=== PATIENT | male | born 1955 | race Caucasian/White ===

== ENCOUNTER 2025-04-27 08:04 | Outpatient (REF) | payer MEDICARE, OTHER, SELFPAY ==
[2025-04-27 13:07] LABS: Appearance Urine Clear; Glucose Urine UA Negative (Negative); PH 5.0 (5.0-9.0); Specific Gravity - Urine 1.025 (1.005-1.025)
[2025-04-27 13:33] LABS: MANUAL DIFF FLAG NO
[2025-04-27 13:44] LABS: Hematocrit 47.2 % (42.0-52.0); Hemoglobin 15.5 g/dl (14.0-18.0); Imm Gran Abs Auto 0.02 X10*3/uL (0.00-0.03); Imm Gran Pct Auto 0.3 % (0.0-0.4); Lymphocytes Absolute Auto 1.5 X10*3/uL (1.2-4.9); Mean Corpuscular HGB Conc 32.8 g/dl (31.0-36.0); Mean Corpuscular Hemoglobin 32.4 pg (27.0-33.0); Mean Corpuscular Volume 98.5 fL (80.0-98.0); NRBC Abs Auto 0.000 X10*3/uL (0.0-0.012); NRBC Pct Auto 0.0 /100WBC (0.0-0.2); Platelet Count 161 X10*3/uL (160-400); Red Blood Count 4.79 X10*6/uL (4.60-5.80); White Blood Count 6.6 X10*3/uL (4.8-10.8)
[2025-04-27 14:46] LABS: Folate 9.3 ng/mL (> or = 4.0); Vitamin B12 304 pg/mL (200-900)
[2025-04-27 19:25] LABS: Alanine Aminotransferase 34 U/L (0-40); Albumin Level 4.4 g/dL (3.5-5.0); Alkaline Phosphatase 54 U/L (39-117); Anion Gap 11 (12-20); Aspartate Amino Transferase 33 U/L (5-37); Blood Urea Nitrogen 20 mg/dL (9-16); Calcium 9.4 mg/dL (8.4-10.2); Carbon Dioxide 29 mmol/L (22-29); Chloride 109 mmol/L (96-108); Cholesterol 133 mg/dL (<200); Estimated Glomerular Filt Rate > 60; HDL Cholesterol 58 mg/dL (>40); Magnesium 1.8 mg/dL (1.6-2.6); Potassium 4.9 mmol/L (3.3-5.1); Sodium 144 mmol/L (135-145); Total Protein 6.9 g/dL (6.5-8.0); Triglycerides 69 mg/dL (<150)
[2025-04-28 05:09] LABS: Syphilis Screen Nonreactive (Nonreactive)
[2025-04-28 05:41] LABS: HBS Num1 2.42 mIU/mL (0-7.99); HBsAGNum1 0.36 S/CO (0.00-0.99); HIV Num 1 0.05 S/CO (0.00-0.99); Hepatitis B Surface Antigen Negative (Negative); ~HepC Num1 0.08 S/CO (0.00-0.79); ~Hepatitis B Surface Antibody NONREACTIVE (Nonreactive); ~Hepatitis C Antibody Nonreactive (Nonreactive)
[2025-05-02 15:12] LABS: VITAMIN D (1,25 OH) D3 30 pg/mL; Vit D (1,25-Dihydroxy) Total 30 pg/mL (18-72); Vitamin D (1,25 OH) D2 <8 pg/mL
== END 2025-04-27 08:05 | disposition home or self-care (01) ==
LOC: HO.HKASLDS 08:04
PROVIDERS: PCP Student in an Organized Health Care Education/Training Program; Visit Provider Student in an Organized Health Care Education/Training Program
DX: I25.10 Atherosclerotic heart disease of native coronary artery without angina pectoris (principal); G25.0 Essential tremor; J98.4 Other disorders of lung; Z76.89 Persons encountering health services in other specified circumstances; Z79.891 Long term (current) use of opiate analgesic; Z28.89 Immunization not carried out for other reason; Z98.890 Other specified postprocedural states
CPT/HCPCS: 36415; 80053; 80061; 81003; 82607; 82652; 82746; 83036; 83735; 84443; 85025; 86706; 86780; 86803; 87340; 87389; 90471; 96127; 99202

== ENCOUNTER 2025-04-27 08:04 | Outpatient (AMB) | payer MEDICARE, OTHER, SELFPAY ==
--- NOTE | 2025-04-27 08:18 | MHC.PC.OV ---
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 Accompanied by: Self / Same As Patient Allergies No Known Allergies (No Known Allergies*) Allergy (Verified 04/27/25 08:18) Medication List - Last Reconciled 04/27/25 by Herrera Mcpherson MD aspirin 81 mg PO DAILY fluticasone propionate 50 mcg/actuation 1 spray intranasal DAILY metoprolol succinate ER 100 mg PO DAILY naproxen 500 mg PO BID PRN rosuvastatin 20 mg PO BEDTIME Tobacco use date assessed: 04/27/25 Fall risk assessment: No Falls in past year Last assessed Fall Risk: 04/27/25 Dental Screening Dental Screen Date: 04/27/25 Did you have a dental visit in the last 12 months?: No Was dental information given to patient?: No HPI HPI Comments History of Present Illness Details History of Present Illness The patient is a 69 year old individual presenting to [facility]. Coronary Artery Disease: The patient has a history of open-heart surgery in 2019 for two clogged arteries. A stent-based procedure was not possible, necessitating open surgery. The patient is followed by a strawberry grower, Dr. Leiva, once a year and is currently taking aspirin, metoprolol, and rosuvastatin. The patient's next cardiology follow-up is scheduled for August. History of Lumbar Surgery: The patient has undergone two back operations for nerve damage. The first surgery was 12 to 14 years ago, and a subsequent surgery on a disc was performed 3 to 4 years ago. The patient reports these have worked out well, with occasional creakiness. Chronic Lung Changes: The patient has a chronically elevated left lung, which has been present since or childhood. 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 The patient's cardiac surgeon also suspected it was due to polio. This baseline condition causes gurgly sounds in the left lung upon auscultation, but the patient denies any breathing problems. The patient's prior primary care physician would order a chest x-ray every three to four years for monitoring. Health Maintenance: The patient's last colonoscopy was two years ago and the next one is due in three years. The patient had blood work done less than a month ago with [facility]. Essential Tremor: The patient has had fine tremors since . Surgical History: - Open heart surgery in 2019. - Two back surgeries, with the most recent being 3-4 years ago. - Left meniscectomy, date unknown. Medications: - Aspirin, indication: heart related - Metoprolol, indication: heart related - Rosuvastatin, indication: heart related Social History: - Tobacco Use: The patient is a former smoker, having quit approximately 30 years ago. - The patient smoked for about 15 years, at a rate of 10 cigarettes per day. - Substance Use: The patient denies illicit drug use. 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 Diagnostic Results: - Recent blood work performed less than a month ago via [facility] showed good cholesterol levels and included an A1c. - Last colonoscopy was performed two years ago, with a recommendation for a repeat screening in five years from that date. Past Medical History - Coronary artery disease, status post open-heart surgery in 2019. - Chronic back issues with nerve damage, status post two back operations. - History of left meniscectomy. - Chronically elevated left lung, thought to be related to childhood polio. - History of tobacco use, quit 30 years ago. - Essential tremor since . - No hospitalizations other than for the aforementioned surgeries. Health Maintenance - Order baseline laboratory studies including an A1c, lipids panel, vitamin B12, folate, vitamin D, CMP, and hemoglobin. - Schedule a follow-up appointment in two weeks to review lab results. - Continue annual follow-up with cardiology. - Continue colonoscopy screenings as scheduled; next one due in three years. [facility] Medical History (Updated 04/27/25 @ 09:09 by Herrera Mcpherson MD) History of nicotine use Lung abnormality Essential tremor CAD (coronary artery disease) Surgical History (Updated 04/27/25 @ 09:09 by Herrera Mcpherson MD) History of lumbar surgery Family History (Updated 04/27/25 @ 08:29 by Kiera Young CMA) Mother No problems noted. Father Heart disease Social History Housing: House Patient Tobacco Use Status: Former Tobacco user e-Cigarette/Vaping Use: Never Used service: No Current occupational status: employed Cognitive needs: No Hearing needs: No Vision needs: Yes (rx glasses) Questionnaire PHQ-9 Over the last 2 weeks, how often have you been bothered by any of the following problems? 1. Little interest or pleasure in doing things: not at all 2. Feeling down, depressed, or hopeless: not at all 3. Trouble falling or staying asleep, or sleeping too much: not at all 4. Feeling tired or having little energy: not at all 5. Poor appetite or overeating: not at all 6. Feeling bad about yourself - or that you are a failure or have let yourself or your family down: not at all 7. Trouble concentrating on things, such as reading the newspaper or watching television: not at all 8. Moving or speaking so slowly that other people could have noticed. Or the opposite - being so fidgety or restless that you have been moving around a lot more than usual: not at all 9. Thoughts that you would be better off or of hurting yourself in some way: not at all Total score: 0 Source: Developed by Drs. Joe Mckeon, Lisa Parker, Rex Wilder and colleagues, with an educational og from [employer]. Thrive Questionnaire Date Thrive assessed: 04/27/25 I am a: Patient What is your living situation today?: I have a steady place to live Within the past 12 months, did the food you bought not last and you didn't have the money to get more?: Never true Within the past 12 months, did you worry whether your food would run out before you got money to buy more?: Never true Do you have trouble paying for medicines?: No Do you have trouble getting transportation to medical appointments?: No Do you have trouble paying your heating and electricity bill?: No Do you have trouble taking care of your child, family member or friend?: No Are you currently unemployed and looking for a job?: No Are you interested in more education?: No Please select the resources that you would like help with: None Currently or been in a relationship where the following occur: No concerns reported THRIVE Score: 0 AUDIT C Alcohol Use Questionnaire (AUDIT-C) 1. How often do you have a drink containing alcohol?: 2-3 times a week 2. How many drinks containing alcohol do you have on a typical day when you are drinking?: 1 or 2 3. How often do you have six or more drinks on one occasion?: Never Total Score: 3 TERESA-7 AMB Questionnaire TERESA-7 Date TERESA - 7 assessed: 04/27/25 Feeling nervous, anxious, or on edge: 0 = Not at all Not being able to stop or control worryin = Not at all Worrying too much about different things: 0 = Not at all Trouble relaxin = Not at all Being so restless that it is hard to sit still: 0 = Not at all Becoming easily annoyed or irritable: 0 = Not at all Feeling afraid as if something awful might happen: 0 = Not at all Total TERESA-7 score (0-4 normal; 5-9 mild; 10-14 moderate; 15-21 severe): 0 Source: Developed by Drs. Joe Mckeon, Lisa Parker, Rex Wilder and colleagues, with an educational og from [employer]. Review of Systems Narrative Review of Systems - General: Reports feeling pretty well and cannot complain. - Respiratory: Denies breathing problems, but notes the left lung has sounded gurgly forever and ever. - Neurological: Reports longstanding fine tremors since . - Genitourinary: Reports occasional nocturia, waking once a night. - Gastrointestinal: Denies constipation. - Musculoskeletal: Reports feeling creaky at times but has no specific complaints. - Endocrine: Denies swelling in the lower legs. 10-point ROS reviewed and negative except as noted in HPI Physical exam (Primary Care) Vital Signs: Last Vital Signs Temp 97.9 F 04/27/25 08:24 Pulse 60 04/27/25 08:24 Pulse Ox 97 04/27/25 08:24 Oxygen Delivery Method Room Air 04/27/25 08:24 BMI result Body Mass Index 27.7 Tobacco/Smoking Status: Tobacco use Status Tobacco use date assessed 04/27/25 04/27/25 08:20 Patient Tobacco Use Status Former Tobacco user 04/27/25 08:31 e-Cigarette/Vaping Use Never Used 04/27/25 08:20 PHQ-9: PHQ-9 Score PHQ-9: Total score 0 04/27/25 08:26 Thrive Assessment: Date of Thrive Assessment Date Thrive assessed 04/27/25 04/27/25 08:20 Currently or been in a relationship where the following occur: No concerns reported Narrative Physical Exam General: Well-appearing, in no acute distress. Vital signs: Within normal limits. HEENT: Normocephalic, atraumatic. PERRLA, EOMI. Conjunctiva clear, sclera anicteric. Oropharynx clear, mucous membranes moist. TMs intact bilaterally. Neck: Supple, no lymphadenopathy, no thyromegaly, no JVD or carotid bruits. Cardiovascular: RRR, normal S1/S2, no murmurs, rubs, or gallops. Peripheral pulses 2+ and symmetric. No edema. Respiratory: Lungs with crackles on the left side, no wheezes, rales, or rhonchi. Normal effort. Abdomen: Soft, non-tender, non-distended. Normoactive bowel sounds. No hepatosplenomegaly, no masses. MSK: Full range of motion, no joint swelling or deformity. Normal gait. Fine tremors noted, present since infancy. Skin: Warm, dry, intact. No rashes, lesions, or pallor. Neuro: Alert and oriented x3. Cranial nerves II-XII intact. Strength 5/5 throughout. Sensation intact. Reflexes 2+ symmetric. Normal coordination and gait. Psych: Appropriate mood and affect. Normal judgment and insight. Office Procedures Flu Questionnaire Does the patient have a severe egg allergy?: No Does the patient have severe life threatening allergies?: No Does the patient have a fever or illness today?: No Has the patient ever had Guillain-[place] Syndrome?: No Has the patient ever had any past reaction to a flu shot?: No Immunizations Fluarix [id number] (PF) 45 mcg (15 mcg x 3)/0.5 mL IM syringe Performing Provider: Herrera Mcpherson MD Performing Location: [facility] [place] [facility] Documented (not given) by: Kiera Young CMA on 04/27/25 08:40 Reason Not Given: Received Previously Coding Level of Care Code New Pt Level 4 (67922) Diagnoses CAD (coronary artery disease) I25.10 History of lumbar surgery Z98.890 Essential tremor G25.0 Lung abnormality J98.4 Encounter to establish care Z76.89 History of nicotine use Z87.891 Assessment & Plan Assessment & Plan (1) CAD (coronary artery disease): Code(s): I25.10 - Atherosclerotic heart disease of [place] coronary artery without angina pectoris Category: Medical (2) History of lumbar surgery: Code(s): Z98.890 - Other specified postprocedural states Category: Surgical (3) Essential tremor: Code(s): G25.0 - Essential tremor Category: Medical (4) Lung abnormality: Code(s): J98.4 - Other disorders of lung Category: Medical (5) Encounter to establish care: Code(s): Z76.89 - Persons encountering health services in other specified circumstances (6) History of nicotine use: Code(s): Z87.891 - Personal history of nicotine dependence Category: Medical Plan Consent The patient provided verbal consent for the agreed-upon plan, which includes obtaining baseline laboratory studies and scheduling a follow-up visit in two weeks to review the results. Patient was informed and verbally consented to the use of an ambient scribe for clinic note documentation during this visit. Plan 1. Chronic Lung Changes - The patient's chronic lung findings, including crackles on the left side, are noted as a baseline. - Will consider periodic chest x-rays for monitoring as was done by the patient's previous provider. Discussion Notes I discussed with the patient the purpose of this visit, which is to establish primary care. I explained that although the patient had recent blood work, I would be ordering a new set of labs to establish a baseline for my records, including tests for A1c, lipids, B12, folate, vitamin D, and a CMP. We agreed that the patient will have the labs drawn and return in two weeks to go over the results. I noted the patient's concern about insurance coverage for a full physical exam so soon after a recent one and explained this visit is for initiating care. Patient Instructions - Please go to the lab next door to get your blood drawn for the tests we discussed. - Make an appointment to come back and see me in two weeks to review your lab results. - Continue to take your current medications as prescribed. - Continue your yearly appointments with your heart doctor. Medical Decision Making This 69-year-old individual presents for establishment of primary care. The patient's history is notable for coronary artery disease status post CABG, prior lumbar surgeries, and chronic left lung changes that are reportedly congenital and stable. The physical exam confirmed the patient's baseline of left-sided lung crackles and a longstanding fine tremor. Given this is an initial visit, the primary goal is to gather baseline data. Therefore, I have ordered a comprehensive panel of labs, including a CMP, CBC, HbA1c, lipids, and vitamin levels, despite recent testing, to ensure a complete record. A follow-up in two weeks will be used to review these results and establish a long-term health maintenance plan. Coordination of care will continue with the patient's strawberry grower. Total Time Statement 30 min Total time spent caring for the patient today includes pre-visit chart review, documentation, review of laboratory and diagnostic imaging results, medication reconciliation, medically necessary evaluation, counseling on diagnoses, care coordination, ordering appropriate tests and medications, review of tests performed by other providers, reporting test results to the patient, and communication with other healthcare providers. Orders: Orders Complete Blood Count Auto Diff Today Z13.9 - Encounter for screening, unspecified Hepatitis B Surface Antigen Today Z13.9 - Encounter for screening, unspecified Syphilis Screen Today Z13.9 - Encounter for screening, unspecified Comprehensive Met. Panel Today Z13.9 - Encounter for screening, unspecified UA CC w/rflx Micro + Cult Today Z13.9 - Encounter for screening, unspecified Lipid Panel Today Z13.9 - Encounter for screening, unspecified Vitamin B12 and Folate Today Z13.9 - Encounter for screening, unspecified Hepatitis B Surface Antibody Today Z13.9 - Encounter for screening, unspecified Influenza [id number] Immunization Today Z23 - Encounter for immunization Hepatitis C Antibody Today Z13.9 - Encounter for screening, unspecified TSH reflex Free T4 Today Z13.9 - Encounter for screening, unspecified HIV Ab/Ag Today Z13.9 - Encounter for screening, unspecified Hemoglobin A1c Today Z13.9 - Encounter for screening, unspecified Magnesium Today Z13.9 - Encounter for screening, unspecified Vitamin D 1,25 dihydroxy Today Z13.9 - Encounter for screening, unspecified
--- OUTSIDE RECORDS SUMMARY | 2025-04-27 08:20 | XMS_ITS | Clinical Summary ---
Author Organization [facility] Address [address] [place] [address] Phone Care Team Providers Care Patient Portal Representative Name Role Phone Da Bennett MD Primary Care Provider [phone] Allergies No known active allergies Medications acetaminophen (TYLENOL) 325 mg tablet Take 2 Tablets by mouth every 6 hours as needed. Active NAPROXEN ORAL Take by mouth as needed. Active metoprolol succinate (TOPROL-XL) 100 mg 24 hr tablet Take 100 mg by mouth daily. Active rosuvastatin (CRESTOR) 20 mg tablet Take 20 mg by mouth daily. Active aspirin 81 mg EC tablet Take 81 mg by mouth daily. Active fluticasone propionate (FLONASE) 50 mcg/actuation nasal spray 2 Sprays by Each Nare route daily. Active Active Problems Problem Noted Date Diagnosed Date Primary hypertension 08/24/2024 Assessment & Plan (08/24/2024 9:53 AM EDT): Blood pressure is reasonably controlled in the office today at 130/78. Continue metoprolol as prescribed. Hyperlipidemia 08/24/2024 Assessment & Plan (08/24/2024 9:53 AM EDT): Last lipid panel reviewed and under excellent control with an LDL of 62 which is at goal of <70. Continue rosuvastatin as prescribed. Coronary artery disease invo lving autologous artery coronary bypass graft without angina pectoris 06/28/2020 Overview (05/28/2024): Dr. Wale Dean. He underwent two-vessel coronary artery bypass grafting on 11/26/2018 the KAPLAN to LAD and SVG to RCA. Last Assessment & Plan: He has not had symptoms of coronary insufficiency. Most recent LDL is at goal. He is appropriately treated with medical therapy for coronary artery disease with low- dose aspirin, statin and beta-katharine therapy. Recent echocardiogram did not disclose evidence of structural heart disease and surveillance stress test suggested prior apical infarct which is not unexpected given his initial presentation without evidence ischemia. I reassured him on the basis of the studies. Will plan for routine clinical follow-up in 1 year or sooner if needed. Assessment & Plan (08/24/2024 9:52 AM EDT): Patient has a history of coronary artery disease status post coronary artery bypass graft with KAPLAN to the LAD and RGSV to the RCA. He denies signs and symptoms of coronary insufficiency. Continue on aspirin, metoprolol and rosuvastatin as prescribed. For any chest pain/discomfort, especially if associated with exertion, that lasts longer than 10-15 minutes and does not resolve with rest, patient has been encouraged to seek immediate medical attention by calling 911. Family History Medical History Relation Name Comments Coronary artery disease Father Relation Name Status Comments Father Social History Tobacco Use Types Packs/Day Years Used Date Smoking Tobacco: Former Smokeless Tobacco: Former Alcohol Use Standard Drinks/Week Comments Yes 0 (1 standard drink = 0.6 oz pur e alcohol) socially Sex and Gender Information Value Date Recorded Sex Assigned at Not on file Legal Sex Male 3:06 AM EST Gender Identity Not on file Sexual Orientation Not on file Obstetrics History Last Filed Vital Signs Vital Sign Reading Time Taken Comments Blood Pressure 130/78 08/24/2024 9:01 AM EDT Pulse 52 08/24/2024 9:01 AM EDT Temperature - - Respiratory Rate - - Oxygen Saturation 97% 08/24/2024 9:01 AM EDT Inhaled Oxygen Concentration - - Weight 88 kg (194 lb) 08/24/2024 9:01 AM EDT Height 175.3 cm (5' 9 ) 08/24/2024 9:01 AM EDT Body Mass Index 28.65 08/24/2024 9:01 AM EDT Plan of Treatment Health Maintenance Due Date Last Done Comments Colorectal Cancer Screening: Colonoscopy 1954 DTaP,Tdap,and Td Vaccines (1 - Tdap) 1973 Zoster Vaccines (2 of 2) 09/04/2021 07/10/2021 Pneumococcal Vaccine: 50+ Years (2 of 2 - PCV20 or PCV21) 03/10/2022 03/10/2021 Cholesterol Screening (Lipid Panel) 05/06/2022 07/27/2004 Falls Risk Assessment 05/06/2022 Hepatitis C Screening 05/06/2022 Social Influencers of Health Screening 05/06/2022 Hypertension/CHF/CAD Annual BMP Blood Test 08/27/2022 07/27/2004 Medicare Annual Wellness Visit 07/31/2023 07/31/2022 Depression Screening 06/03/2024 COVID-19 Vaccine ( season) 2025 02/23/2024, 03/20/2023, 02/22/2022, Additional history exists Influenza Vaccine (#1) 2025 , 03/20/2023, 02/14/2022, Additional history exists Abdominal Aortic Aneurysm (AAA) Screen Completed 04/13/2002 RSV Immunization Adult Patients Completed 03/23/2024 HIB Vaccines Aged Out No longer eligi ble based on patient's age to complete this topic HPV Vaccines Aged Out No longer eligi ble based on patient's age to complete this topic Hepatitis A Vaccines Aged Out No long er eligible based on patient's age to complete this topic Hepatitis B Vaccines Aged Out No long er eligible based on patient's age to complete this topic IPV Vaccines Aged Out No longer eligi ble based on patient's age to complete this topic MMR Vaccines Aged Out No longer eligi ble based on patient's age to complete this topic Meningococcal ACWY Vaccine Aged Out N o longer eligible based on patient's age to complete this topic Meningococcal B Vaccine Aged Out No l onger eligible based on patient's age to complete this topic RSV Immunization Patients Under 20 months Aged Out No longer eligible based on patient's age to complete this topic Varicella Vaccines Aged Out No longer eligible based on patient's age to complete this topic Procedures Procedure Name Priority Date/Time Associated Diagnosis Comments ANNUAL BMP BLOOD TEST Routine 07/27/2004 LIPID PANEL Routine 07/27/2004 ABDOMINAL AORTIC ANEURYSM SCRREN Routine 04/13/2002 from Last 3 Months or Most Recently Relevant to Health Maintenance Results * Annual BMP Blood Test (07/27/2004) Annual BMP Blood Test Abstracted [facility] Provider HEALTH MAINTENANCE Final Result * (ABNORMAL) Lipid panel (07/27/2004) Pathologist [facility] LDL/HDL Ratio 3 <=5 Triglycerides 66 <=150 mg/dL Cholesterol 183 <=200 mg/dL HDL 57 >=40 mg/dL LDL Cholesterol 113(A) <=100 mg/dL Blood Venous blood specimen / Unknown [facility] Provider LAB BLOOD ORDERABLES Kathleen l Result * Abdominal Aortic Aneurysm Screen (04/13/2002) Pathologist formerly [facility] Abdominal Aortic Aneurysm (AAA) Screening Abstracted Anatomical Region Laterality Modality Other [facility] Provider HEALTH MAINTENANCE Final Result from Last 3 Months or Most Recently Relevant to Health Maintenance Insurance MEDICARE [facility] Care Teams Patient Portal Representative Relationship Specialty Start Date End Date Da Bennett MD [address] [place] [id number] PCP - General 09/19/18
[2025-04-27 08:24] VITALS: BP 124/68; PULSE 60; TEMP 36.6; O2SAT 97; BMI 27.7
== END 2025-04-27 08:51 | disposition home or self-care (01) ==
LOC: HO.HMCFMS 08:04
PROVIDERS: PCP Student in an Organized Health Care Education/Training Program; Visit Provider Student in an Organized Health Care Education/Training Program
DX: I25.10 Atherosclerotic heart disease of native coronary artery without angina pectoris (principal); Z98.890 Other specified postprocedural states; G25.0 Essential tremor; J98.4 Other disorders of lung; Z76.89 Persons encountering health services in other specified circumstances; Z87.891 Personal history of nicotine dependence; Z23 Encounter for immunization

== ENCOUNTER 2025-05-13 08:12 | Outpatient (AMB) | payer MEDICARE, OTHER, SELFPAY ==
--- NOTE | 2025-05-13 08:19 | MHC.PC.OV ---
Vital Signs 05/13/25 08:26 Height 5 ft 8.5 in Weight 186 lb 2 oz BMI 27.9 BP 135/77 Blood Pressure Location Rt brachial Position Sitting Pulse 65 Pulse Source Pulse Oximeter Temp 98.3 F Temp Source Oral Pulse Oximetry (%) 99 Oxygen Delivery Method Room Air Intake Visit Reasons: 2 week follow up Accompanied by: Self / Same As Patient Allergies No Known Allergies (No Known Allergies*) Allergy (Verified 05/13/25 08:22) Medication List - Last Reconciled 05/13/25 by Herrera Mcpherson MD aspirin 81 mg PO DAILY fluticasone propionate 50 mcg/actuation 1 spray intranasal DAILY metoprolol succinate ER 100 mg PO DAILY naproxen 500 mg PO BID PRN rosuvastatin 20 mg PO BEDTIME Tobacco use date assessed: 05/13/25 Fall risk assessment: No Falls in past year Last assessed Fall Risk: 05/13/25 Dental Screening Dental Screen Date: 05/13/25 Did you have a dental visit in the last 12 months?: No HPI HPI Comments History of Present Illness Details History of Present Illness The patient is a 69 year old male presenting with a follow-up visit to review laboratory results. Prediabetes: The patient has a history of elevated blood sugar for approximately 20 years, which has been monitored. He reports trying to eat well to manage his blood sugar but occasionally eats steak. His current hemoglobin A1c is 5.7%. Vitamin B12 deficiency: Review of recent laboratory results shows a vitamin B12 level of 304 pg/mL, which is on the low end of the normal range of 200-900 pg/mL. Social History: - Nutrition: The patient reports trying to eat well but occasionally consumes steak. Diagnostic Results: - Complete Blood Count (CBC): Normal red blood cells, hemoglobin, and white blood cell count. - Comprehensive Metabolic Panel (CMP): Normal sodium, potassium, and renal function. - Hemoglobin A1c: 5.7%. - Liver Function Tests: Normal. - Lipid Panel: Normal triglycerides, total cholesterol, LDL, and HDL. - Vitamin B12: 304 pg/mL (Normal range 200-900 pg/mL). - Vitamin D: Normal. - Folate: Normal. - Thyroid Function Tests: Normal. - Urinalysis: Normal. - Infectious Disease Screening: Negative for syphilis, hepatitis B, hepatitis C, and HIV. Past Medical History - Prediabetes: Diagnosed approximately 20 years ago, has been monitored since. Health Maintenance - The patient has been managing his diet to control blood sugar levels. - Reassured that his hemoglobin A1c of 5.7% is at the threshold of prediabetes and currently acceptable. - Screenings for syphilis, hepatitis B, hepatitis C, and HIV were negative. [facility] Medical History (Updated 05/13/25 @ 08:46 by Herrera Mcpherson MD) Low vitamin B12 level Prediabetes History of nicotine use Lung abnormality Essential tremor CAD (coronary artery disease) Surgical History History of lumbar surgery Family History Mother No problems noted. Father Heart disease Social History Housing: House Patient Tobacco Use Status: Former Tobacco user e-Cigarette/Vaping Use: Never Used service: No Current occupational status: employed Cognitive needs: No Hearing needs: No Vision needs: Yes (rx glasses) Questionnaire Thrive Questionnaire Date Thrive assessed: 04/27/25 I am a: Patient What is your living situation today?: I have a steady place to live Within the past 12 months, did the food you bought not last and you didn't have the money to get more?: Never true Within the past 12 months, did you worry whether your food would run out before you got money to buy more?: Never true Do you have trouble paying for medicines?: No Do you have trouble getting transportation to medical appointments?: No Do you have trouble paying your heating and electricity bill?: No Do you have trouble taking care of your child, family member or friend?: No Are you currently unemployed and looking for a job?: No Are you interested in more education?: No Please select the resources that you would like help with: None Currently or been in a relationship where the following occur: No concerns reported THRIVE Score: 0 TERESA-7 AMB Questionnaire TERESA-7 Date TERESA - 7 assessed: 04/27/25 Source: Developed by Drs. Joe Mckeon, Lisa Parker, Rex Wilder and colleagues, with an educational og from [employer]. Review of Systems Narrative Review of Systems 10-point ROS reviewed and negative except as noted in HPI Physical exam (Primary Care) Vital Signs: Last Vital Signs Temp 98.3 F 05/13/25 08:26 Pulse 65 05/13/25 08:26 BP 135/77 05/13/25 08:26 Pulse Ox 99 05/13/25 08:26 Oxygen Delivery Method Room Air 05/13/25 08:26 BMI result Body Mass Index 27.9 Tobacco/Smoking Status: Tobacco use Status Tobacco use date assessed 05/13/25 05/13/25 08:24 Patient Tobacco Use Status Former Tobacco user 05/13/25 08:22 e-Cigarette/Vaping Use Never Used 05/13/25 08:22 Thrive Assessment: Date of Thrive Assessment Date Thrive assessed 04/27/25 05/13/25 08:22 Currently or been in a relationship where the following occur: No concerns reported Narrative Physical Exam General: Well-appearing, in no acute distress. Vital signs: Within normal limits. HEENT: Normocephalic, atraumatic. PERRLA, EOMI. Conjunctiva clear, sclera anicteric. Oropharynx clear, mucous membranes moist. TMs intact bilaterally. Neck: Supple, no lymphadenopathy, no thyromegaly, no JVD or carotid bruits. Cardiovascular: RRR, normal S1/S2, no murmurs, rubs, or gallops. Peripheral pulses 2+ and symmetric. No edema. Respiratory: Lungs clear to auscultation bilaterally, no wheezes, rales, or rhonchi. Normal effort. Abdomen: Soft, non-tender, non-distended. Normoactive bowel sounds. No hepatosplenomegaly, no masses. MSK: Full range of motion, no joint swelling or deformity. Normal gait. Skin: Warm, dry, intact. No rashes, lesions, or pallor. Neuro: Alert and oriented x3. Cranial nerves II-XII intact. Strength 5/5 throughout. Sensation intact. Reflexes 2+ symmetric. Normal coordination and gait. Psych: Appropriate mood and affect. Normal judgment and insight. Office Procedures Flu Questionnaire Does the patient have a severe egg allergy?: No Does the patient have severe life threatening allergies?: No Does the patient have a fever or illness today?: No Has the patient ever had Guillain-[place]rono Syndrome?: No Has the patient ever had any past reaction to a flu shot?: No Immunizations Fluarix [id number] (PF) 45 mcg (15 mcg x 3)/0.5 mL IM syringe Performing Provider: Herrera Mcpherson MD Performing Location: [facility] Documented (not given) by: Kiera Young CMA on 05/13/25 08:25 Reason Not Given: Received Previously Coding Level of Care Code Est Pt Level 3 (67376) Add On Problem Visit Only Diagnoses Prediabetes R73.03 Low vitamin B12 level R79.89 CAD (coronary artery disease) I25.10 History of nicotine use Z87.891 Assessment & Plan Assessment & Plan (1) Prediabetes: Code(s): R73.03 - Prediabetes Category: Medical (2) Low vitamin B12 level: Code(s): R79.89 - Other specified abnormal findings of blood chemistry Category: Medical (3) CAD (coronary artery disease): Code(s): I25.10 - Atherosclerotic heart disease of picayune coronary artery without angina pectoris Category: Medical (4) History of nicotine use: Code(s): Z87.891 - Personal history of nicotine dependence Category: Medical Plan Consent Patient was informed and verbally consented to the use of an ambient scribe for clinic note documentation during this visit. Plan 1. Prediabetes - The patient's hemoglobin A1c is 5.7%, which is at the prediabetes threshold. - Continue to monitor blood sugar levels. - The patient was encouraged for his efforts to eat well, and it was acknowledged that he should be able to enjoy life. 2. Vitamin B12 Deficiency - The patient's vitamin B12 level is 304, which is considered on the low side of the normal range. - Recommended daily [id number] vitamin B12 supplementation. 3. Preventative Care - All other reviewed labs, including CBC, CMP, lipids, liver function, vitamin D, folate, thyroid, urinalysis, and infectious disease screens were normal. - Plan to follow up in six months. - The patient was instructed to use the patient portal for any needs that arise before the next appointment. Discussion Notes I reviewed the patient's recent laboratory results with him. I noted his hemoglobin A1c is 5.7%, placing him at the threshold for prediabetes, and will continue to monitor this. I also discussed his low-normal vitamin B12 level and recommended [id number] supplementation. All other results, including CBC, chemistry, renal function, liver function, lipids, and infectious disease screenings, were normal. I advised a follow-up in six months and instructed him to use the patient portal for any interim needs. Patient Instructions - Your lab results were reviewed and are mostly normal. - Your blood sugar level (Hemoglobin A1c) is 5.7%, which is at the verge of prediabetes. We will continue to keep an eye on this. - Continue your efforts to eat a healthy diet. - Your vitamin B12 level is a little low. You can take an [id number] vitamin B12 supplement every day. - Please schedule a follow-up appointment in six months. - If you need anything before your next appointment, please contact us through the online patient portal. Medical Decision Making The patient is a 69-year-old male who presented for a review of his recent laboratory work. His labs are reassuring overall, with normal CBC, renal function, liver function, and lipid profile. His hemoglobin A1c is 5.7%, which is at the threshold of prediabetes. Given his 20-year history of borderline high blood sugar and his efforts with diet, the plan is to continue monitoring without pharmacologic intervention at this time. His vitamin B12 level of 304 is in the low-normal range, and supplementation was recommended to prevent clinical deficiency. All infectious disease screenings were negative. No acute medical issues were identified, and routine follow-up in six months is appropriate. Total Time Statement 20min Total time spent caring for the patient today includes pre-visit chart review, documentation, review of laboratory and diagnostic imaging results, medication reconciliation, medically necessary evaluation, counseling on diagnoses, care coordination, ordering appropriate tests and medications, review of tests performed by other providers, reporting test results to the patient, and communication with other healthcare providers. Orders: Orders Influenza [id number] Immunization Today Z23 - Encounter for immunization
[2025-05-13 08:26] VITALS: BP 135/77; PULSE 65; TEMP 36.8; O2SAT 99; BMI 27.9
== END 2025-05-13 08:43 | disposition home or self-care (01) ==
LOC: HO.HMCFMS 08:12
PROVIDERS: Visit Provider Student in an Organized Health Care Education/Training Program
DX: R73.03 Prediabetes (principal); R79.89 Other specified abnormal findings of blood chemistry; I25.10 Atherosclerotic heart disease of native coronary artery without angina pectoris; Z87.891 Personal history of nicotine dependence; Z23 Encounter for immunization

== ENCOUNTER → 2025-05-13 08:12 | Outpatient (BNVA) | payer MEDICARE, OTHER, SELFPAY | PROVIDERS: Visit Provider Student in an Organized Health Care Education/Training Program | DX: R73.03 Prediabetes (principal); R79.89 Other specified abnormal findings of blood chemistry; I25.10 Atherosclerotic heart disease of native coronary artery without angina pectoris; Z87.891 Personal history of nicotine dependence; Z28.89 Immunization not carried out for other reason | CPT/HCPCS: 90471; 99212 ==